=== PATIENT | male | born 1995 | race Caucasian/White ===

== ENCOUNTER 2018-11-29 11:24 | Outpatient (CLI) | payer OTHER ==
[2018-11-29 14:32] LABS: #Eosinphils 0.2 thou/uL (0.0-0.7); #Monocytes 0.9 thou/uL (0.11-0.59); #Neutrophils 5.8 thou/uL (1.40-6.50); %Basophils 0.4 % (0.0-1.0); %Eosinophils 2.2 % (0.0-10.0); %Lymphocytes 22.5 % (21.0-51.0); %Monocytes 10.2 % (0.0-10.0); %Neutrophils 64.7 % (42.0-75.0); Hemoglobin 10.1 g/dL (14.0-18.0); Mean Corpuscular HGB CONC 31.4 g/dL (32.0-36.0); Mean Corpuscular Hemoglobin 26.2 pg (27.0-31.0); Mean Corpuscular Volume 83.3 fL (78.0-98.0); Mean Platelet Volume 6.4 fL (7.4-10.4); Platelet Count 510 thou/uL (130-400); RBC Distribution Width 14.2 % (11.5-14.5); Red Blood Cell (RBC) Count 3.88 mill/uL (4.70-6.10); White Blood Cell (WBC) Count 8.9 thou/uL (4.8-10.8)
[2018-11-29 14:50] LABS: Anion Gap 12 mmol/L (10-20); BUN (Urea Nitrogen) 9 mg/dL (8.9-20.6); Calc. Creatinine Clearance 0 mL/min (70-130); Carbon Dioxide 25 mmol/L (22-29); Chloride 105 mmol/L (98-107); Estimated GFR-MDRD Greater than 90; Glucose 84 mg/dL (70-105); Potassium 3.4 mmol/L (3.5-5.1); Sodium 139 mmol/L (136-145)
== END 2018-11-29 11:25 | disposition home or self-care (01) ==
LOC: LABBT 11:24
PROVIDERS: ATTEND Specialist
DX: Z01.812 Encounter for preprocedural laboratory examination (principal); K60.3 Anal fistula; K51.90 Ulcerative colitis, unspecified, without complications
CPT/HCPCS: 80048; 85025

== ENCOUNTER 2018-12-03 06:47 | Day surgery (SDC) | payer OTHER ==
[2018-11-29 12:41] VITALS: BMI 23.7
[2018-12-03] MEDS ORDERED: cefOXitin 2 GM VIAL ONE (07:29)
[2018-12-03] MEDS ORDERED: Ketorolac Tromethamine 30 MG/ML VIAL ONE (07:29)
[2018-12-03] MEDS ORDERED: Sodium Chloride 0.9% 100 ML ONE (07:44)
[2018-12-03] MEDS ORDERED: Midazolam HCl 2 mg/2 ml Vial ONE (08:01)
[2018-12-03] MEDS ORDERED: Lidocaine 2% Jelly 5 ML TUBE ONE ×2 (08:31→08:32)
[2018-12-03] MEDS ORDERED: Bupivacaine/Epinephrine 0.25% 30 ML VIAL ONE (08:31)
[2018-12-03] MEDS ORDERED: Fentanyl 100 MCG/2 ML VIAL ONE (08:32)
[2018-12-03] MEDS ORDERED: ePHEDrine 50 MG/ML VIAL ONE (10:11)
[2018-12-03] MEDS ORDERED: Glycopyrrolate 0.2 MG/ML 5 ML SYRINGE ONE (10:11)
[2018-12-03] MEDS ORDERED: Dexamethasone 20 MG/5 ML VIAL ONE (10:11)
[2018-12-03] MEDS ORDERED: Lidocaine 1% PF 5 ML VIAL ONE (10:11)
[2018-12-03] MEDS ORDERED: PHENYLEPHRINE-NS 100 MCG/ML 10 ML SYRINGE ONE (10:11)
[2018-12-03] MEDS ORDERED: Ondansetron PF 4 MG/2 ML Vial ONE (10:11)
[2018-12-03] MEDS ORDERED: PROPOFOL 200 MG/20 ML VIAL ONE (10:11)
[2018-12-03] MEDS ORDERED: Rocuronium Bromide 10 MG/ML (10ML VIAL) ONE (10:11)
--- NOTE | 2018-12-04 01:20 | OP ---
DATE OF PROCEDURE: 12/03/2018 PREOPERATIVE DIAGNOSES: Inflammatory bowel disease with previously suspected ulcerative colitis, now with consideration of Crohn disease, and large perianal fistula. POSTOPERATIVE DIAGNOSES: Inflammatory bowel disease with previously suspected ulcerative colitis, now with consideration of Crohn disease, and large perianal fistula with a complex fistula and an anterior fissure. PROCEDURES PERFORMED: Rectal examination under anesthesia and partial fistulotomy. ANESTHESIA: General endotracheal. INDICATIONS: The patient is a 23-year-old white male who was diagnosed earlier this year with inflammatory bowel disease. He was felt to have findings consistent with ulcerative colitis initially. He was started on Humira and seemed to be improving, but he returns at this time with a significant perianal fistula causing significant drainage and pain. He was taken to the operating room at this time for exploration under anesthesia for consideration of fistulotomy. DESCRIPTION OF OPERATION: Informed consent was obtained. The patient was taken to the operating room where general endotracheal anesthesia was obtained with the patient in supine position. Perianal area was prepped with Betadine and draped in sterile fashion. Local anesthetic was infiltrated using 0.25% Marcaine with epinephrine in a 4-quadrant intersphincteric fashion. Careful exploration was then carried out externally and internally. The large fistula that had been present at the time that I saw him in my office about 2 weeks ago was at about the 0730 radian. Much of this externally appears to have healed. There was a small skin bridge overlying this and this was incised. It appears that most of this external tissue has already epithelialized. Just proximal to this, however, was an opening with obvious granulation tissue protruding from it. I was able to cannulate this, suspecting that this was another example of a fistula. It seemed to ascend external to the mucosa, but I could not find any tract that communicated with anything internally. Internal to this was further ulcerated tissue, but I could not find a definite communication between this and the external orifice. I attempted to flush the external orifice first with saline and then peroxide and could not discern any communication. Additionally, there appeared to be a fissure anteriorly. I turned my attention back to the opening with the granulation tissue. I opened this sharply for about 6 or 7 mm. The underlying granulation tissue was debrided. I again explored and could not find a tract leading out of this. At this point, given what appeared to be the complex nature of this and in light of his inflammatory bowel disease, I decided not to attempt further aggressive treatment. I placed Gel-Foam with lidocaine jelly within the anal canal and placed an external gauze dressing with mesh pants. There were no complications. Blood loss was minimal. The patient tolerated the procedure well and was taken to recovery room in stable condition. Job ID: [id number]
== END 2018-12-03 11:25 | disposition home or self-care (01) ==
LOC: SDC 06:47
PROVIDERS: ATTEND Specialist
PROC: 0H88XZZ Division of Buttock Skin, External Approach (ICD-10-PCS; principal; 2018-12-03)
DX: K51.913 Ulcerative colitis, unspecified with fistula (principal); Z79.899 Other long term (current) drug therapy; Z98.890 Other specified postprocedural states
CPT/HCPCS: J0131; J0694; J1100; J1885; J2001; J2250; J2405; J2704; J3010; J3490